=== PATIENT | female | born 1990 | race Caucasian/White ===

== ENCOUNTER 2019-10-08 10:58 | Emergency (ER) | payer OTHER ==
[~2019-10-08] VITALS: Ht 157.5 cm; Wt 108.0 kg
[2019-10-08 11:44] VITALS: BP 134/79; Ht 157.5 cm; Wt 108.0 kg
== END 2019-10-08 13:14 | disposition home or self-care (01) ==
LOC: ED 10:58
DX: J11.1 Influenza due to unidentified influenza virus with other respiratory manifestations (principal)
CPT/HCPCS: 87804